=== PATIENT | female | born 1965 | race Caucasian/White ===

== ENCOUNTER 2017-05-12 13:12 | Emergency (ER) | payer MEDICARE, MEDICAID ==
[2017-05-12 13:57] VITALS: BP 116/79
--- NOTE | 2017-05-12 14:47 | UC ---
Respiratory Complaint HPI - HPI Summary HPI Summary: Pt presents with sinus congestion/pain/pressure for 10 days. Non productive cough for 3 days. Denies fever, chills, SOB, chest pain, ST, earache, N/V/D/C. Still smoking. Has not tried anything OTC. Has not been using her inhalers previously prescribed at home. - History of Current Complaint Chief Complaint: UCRespiratory Stated Complaint: COUGH SINUS ISSUE Time Seen by Provider: 05/12/17 14:46 Hx Obtained From: Patient ?: No Onset/Duration: Gradual Onset Timing: Constant Severity Initially: Mild Severity Currently: Mild Character: Cough: Nonproductive Aggravating Factors: Allergens, Exertion Alleviating Factors: Nothing Associated Signs And Symptoms: Positive: URI, Nasal Congestion, Sinus Discomfort. Negative: Dyspnea, Fever, Chills, Pleuritic Chest Pain, Wheezing, Edema - Allergies/Home Medications Allergies/Adverse Reactions: Allergies Allergy/AdvReac Type Severity Reaction Status Date / Time Ibuprofen Allergy BARIATRIC Verified 05/12/17 13:57 SURGERY HX Sulfa Antibiotics Allergy Hives Verified 05/12/17 13:57 PMH/Surg Hx/FS Hx/Imm Hx Previously Healthy: Yes Respiratory History: COPD, Asthma, Bronchitis - Surgical History Surgical History: Yes Surgery Procedure, Year, and Place: BARIATRIC SLEEVE SURGERY 2016, FUSION TO LOW BACK. GALLBLADDER REMOVED, TUBAL, BLADDER SURGERY, ABLASION, - Family History Known Family History: Positive: Unknown - Social History Lives: Alone Alcohol Use: None Substance Use Type: None Smoking Status (MU): Heavy Every Day Tobacco Smoker Type: Cigarettes Household Exposure Type: Cigarettes Review of Systems Constitutional: Negative Skin: Negative Eyes: Negative ENT: Nasal Discharge, Sinus Congestion, Sinus Pain/Tenderness Respiratory: Cough Cardiovascular: Negative Gastrointestinal: Negative Neurological: Negative Psychological: Negative All Other Systems Reviewed And Are Negative: Yes Physical Exam Triage Information Reviewed: Yes Appearance: Well-Appearing, Well-Nourished Vital Signs: Initial Vital Signs Temp 98.1 F 05/12/17 13:52 Pulse 76 05/12/17 13:52 Resp 15 05/12/17 13:52 BP 116/79 05/12/17 13:52 Pulse Ox 100 05/12/17 13:52 Vital Signs Reviewed: Yes ENT: Positive: Hearing grossly normal, Pharynx normal, Nasal congestion, Nasal drainage, TMs normal, Sinus tenderness. Negative: Pharyngeal erythema, TM bulging, TM dull, TM red, Tonsillar swelling, Tonsillar exudate Neck: Positive: Supple, Nontender, No Lymphadenopathy Respiratory: Positive: Chest non-tender, No respiratory distress, No accessory muscle use, Wheezing - Mild throughout Cardiovascular: Positive: RRR, No Murmur, Pulses Normal Skin: Negative: rashes UC Diagnostic Evaluation - Laboratory O2 Sat by Pulse Oximetry: 100 Respiratory Course/Dx - Course Course Of Treatment: Suspect sinusitis with PND and/or secondary acute bronchitis. Pt has not been using her previously prescribed inhalers at home - I advised her to do so as rx'd. Given her length of symptoms, PE, and smoking status - rx Amoxicillin 500mg BID 10 days. - Differential Dx/Diagnosis Differential Diagnosis/HQI/PQRI: Asthma, Bronchitis, Influenza, Lower Resp Infection, Other - PNA Provider Diagnoses: Maxillary Sinusitis. Acute Bronchitis Discharge - Discharge Plan Condition: Stable Disposition: HOME Prescriptions: Amoxicillin PO (*) [Amoxicillin 500 MG CAP*] 500 mg PO Q12H #20 cap Patient Education Materials: Sinusitis (ED), Acute Bronchitis (ED) Referrals: No Primary Care Phys,NOPCP [Primary Care Provider] - Additional Instructions: 1) Amoxicillin 500mg twice a day for 10 days. 2) Use your previously prescribed inhalers that you have at home as directed. 3) Mucinex OTC If you develop a fever, SOB, chest pain, new or worsening symptoms - please call our office or go to ED
== END 2017-05-12 15:07 | disposition home or self-care (01) ==
LOC: UCEAST 13:12
DX: J01.00 Acute maxillary sinusitis, unspecified (principal); J20.9 Acute bronchitis, unspecified; Z88.6 Allergy status to analgesic agent; Z88.2 Allergy status to sulfonamides; J44.9 Chronic obstructive pulmonary disease, unspecified; J45.909 Unspecified asthma, uncomplicated; F17.210 Nicotine dependence, cigarettes, uncomplicated
CPT/HCPCS: 99202; G0463

== ENCOUNTER 2017-07-08 17:27 | Emergency (ER) | payer MEDICARE, MEDICAID ==
--- NOTE | 2017-07-08 20:33 | ED ---
Back Pain - HPI Summary HPI Summary: Patient presents to the ED with CC of low back pain. She has had previous back surgery and has fallen 3-4 times and thinks she may have caused more damage. Worsening pain radiates to the right hip and into the piriformis radiating down the right leg without numbness, tingling. She denies weakness, B/B dysfunction. She denies fevers, sweats or chills. She has had a steroid injection in the back last week and states the pain should be improving, but it has stayed the same. Pain has remained constant for 1 week. She denies head injury or LOC. - History of Current Complaint Chief Complaint: EDBackInjuryPain Stated Complaint: BACK PAIN Time Seen by Provider: 07/08/17 18:40 Hx Obtained From: Patient Onset/Duration: Sudden Onset Onset/Duration: Started Days Ago Timing: Constant Back Pain Location: Is Diffuse - throughout the cervical, thoracic and lumbar spine Pain Intensity: 10 Pain Scale Used: 0-10 Numeric Character: Aching Aggravating Symptom(s): Movement, Lifting, Bending Alleviating Symptom(s): Rest, Position - Risk Factors AAA Risk Factors: Negative TAD Risk Factors: Negative Cauda Equina Risk Factors: Negative Epidural Abscess Risk Factors: Negative - Allergies/Home Medications Allergies/Adverse Reactions: Allergies Allergy/AdvReac Type Severity Reaction Status Date / Time Ibuprofen Allergy BARIATRIC Verified 05/21/17 08:56 SURGERY HX Sulfa Antibiotics Allergy Hives Verified 05/21/17 08:56 PMH/Surg Hx/FS Hx/Imm Hx Previously Healthy: Yes Endocrine/Hematology History: Denies: Hx Diabetes Cardiovascular History: Denies: Hx Hypertension GI History: Reports: Other GI Disorders - Hx bariatric surgery History: Denies: Hx Renal Disease - Surgical History Surgery Procedure, Year, and Place: BARIATRIC SLEEVE SURGERY 2016, FUSION TO LOW BACK. GALLBLADDER REMOVED, TUBAL, BLADDER SURGERY, ABLASION, - Immunization History Date of Influenza Vaccine: Fall 2016 Hx Pertussis Vaccination: No Immunizations Up to Date: Unable to Obtain/Confirm Infectious Disease History: No Infectious Disease History: Denies: History Other Infectious Disease, Traveled Outside the [place] in Last 30 Days - Family History Known Family History: Positive: Unknown - Social History Occupation: Employed Full-time Lives: With Family Alcohol Use: None Hx Substance Use: No Substance Use Type: Reports: None Hx Tobacco Use: Yes Smoking Status (MU): Heavy Every Day Tobacco Smoker Type: Cigarettes Review of Systems Constitutional: Negative Negative: Fever, Chills, Fatigue Eyes: Negative Cardiovascular: Negative Gastrointestinal: Negative Genitourinary: Negative Positive: no symptoms reported, see HPI Positive: Arthralgia - mid to low back pain Skin: Negative Neurological: Negative All Other Systems Reviewed And Are Negative: Yes Physical Exam Triage Information Reviewed: Yes Vital Signs On Initial Exam: Initial Vitals Temp Pulse Resp BP Pulse Ox 97.8 F 74 18 138/74 100 07/08/17 17:31 07/08/17 17:31 07/08/17 17:31 07/08/17 17:31 07/08/17 17:31 Vital Signs Reviewed: Yes Appearance: Positive: Well-Appearing, Well-Nourished Skin: Positive: Skin Color Reflects Adequate Perfusion Head/Face: Positive: Normal Head/Face Inspection Eyes: Positive: EOMI, DAYNE, Conjunctiva Clear Neck: Positive: Supple, No Lymphadenopathy Respiratory/Lung Sounds: Positive: Clear to Auscultation, Breath Sounds Present Cardiovascular: Positive: RRR, Pulses are Symmetrical in both Upper and Lower Extremities Neurological: Positive: Sensory/Motor Intact, Alert, Oriented to Person Place, Time, Speech Normal Psychiatric: Positive: Normal Diagnostics - Vital Signs Vital Signs Temp Pulse Resp BP Pulse Ox 07/08/17 17:31 97.8 F 74 18 138/74 100 - Laboratory Lab Statement: Any lab studies that have been ordered have been reviewed, and results considered in the medical decision making process. Back Pain Course/Dx - Course Course Of Treatment: Patient presents to the ED with request for CT scan of the back d/t pain and worsening symptoms since falling 3-4 times in the last few months. Recently received a steroid injection without improvement. Offered bupivicaine to the back for short term relief, but patient declines. CT cervical, thoracic and lumbar obtained and all with no changes. Patient is tearful. She is given tramadol 50mg in the ED. I have encouraged tylenol for pain control d/t gastric bypass and unable to take ibuprofen. She is encouraged to follow up with her spine physician and she agrees. I believe she is having inflammation and exacerbation of sciatica. I have given low back excercises. She will use heat for comfort. - Diagnoses Differential Diagnosis/HQI/PQRI: Positive: Herniated Disc Provider Diagnoses: Sciatica Discharge - Discharge Plan Condition: Stable Disposition: HOME Patient Education Materials: Lower Back Exercises (ED) Referrals: Marvin Menjivar DO [Primary Care Provider] - Additional Instructions: Tylenol 650mg three times daily Continue with your therapy and your steroid injections as prescribed As discussed, nothing new is found on CT scans today This is likely a flare up of inflammation with sciatica with radiating pain to the lumbar spine and hip
--- NOTE | 2017-07-08 20:41 | RAD ---
INDICATION: Trauma, history of back surgery, back pain. COMPARISON: Comparison is made with a prior CT of the abdomen and pelvis from May 21, 2017. TECHNIQUE: Contiguous axial sections were obtained beginning above the L1 vertebra and continuing through the L5-S1 disc space. Images were reconstructed in the sagittal and coronal planes. FINDINGS: The vertebra are in normal alignment. No acute fracture is seen. The patient is status post anterior and posterior spinal fusion at the L5-S1 level. There is a metallic plate present anterior transfixed with screws and pedicle screws present posteriorly. There appears to be bone graft within the L5-S1 disc which is not appear to be fused to the adjacent vertebra. At the L2-L3 level there is a mild broad-based disc bulge and mild hypertrophic changes within the facet joints. No spinal canal or neural foraminal narrowing is seen. At the L3-L4 level there is a minimal broad-based disc bulge and mild hypertrophic changes within the facet joints. No spinal canal or neural foraminal narrowing is seen. At the L4-L5 level there is a mild broad-based disc bulge and hypertrophic changes within the facet joints. The spinal canal is partially obscured due to metallic artifact. There appears to be mild spinal canal narrowing. Neural foramen appear patent on both sides. At the L5-S1 level the spinal canal is obscured due to metallic artifact from the fusion. No gross spinal canal narrowing is appreciated. IMPRESSION: 1. NO EVIDENCE FOR ACUTE FRACTURE OR SUBLUXATION. 2. STATUS POST ANTERIOR AND POSTERIOR SPINAL FUSION AT THE L5-S1 LEVEL. THERE IS NO EVIDENCE FOR OSSEOUS FUSION. 3. MILD SPONDYLITIC CHANGES.
--- NOTE | 2017-07-08 20:43 | RAD ---
INDICATION: Mild cervical spondylosis. COMPARISON: There are no prior studies available for comparison. TECHNIQUE: Contiguous axial sections were obtained from the skull base through the T1 vertebra. Images were reconstructed in the sagittal and coronal planes. FINDINGS: There is straightening of the cervical spine with loss of the normal cervical lordosis. No prevertebral soft tissue swelling or fracture is seen. At the C5-C6 level there is mild posterior uncinate process spurring associated with a mild broad-based disc bulge. No significant spinal canal or neural foraminal narrowing is present. At the C6-C7 level there is a small central disc protrusion causing mild spinal canal narrowing. Neural foramen appear patent on both sides. IMPRESSION: 1. STRAIGHTENING OF THE CERVICAL SPINE, NO EVIDENCE FOR FRACTURE OR SUBLUXATION. 2. MILD CERVICAL SPONDYLOSIS.
--- NOTE | 2017-07-08 21:00 | RAD ---
INDICATION: Trauma, recent falls. COMPARISON: There are no prior studies available for comparison. TECHNIQUE: Contiguous axial sections were obtained beginning above the C7 vertebra and scanning through the T12 vertebra. Images were reconstructed in the sagittal and coronal planes. FINDINGS: The vertebra are in normal alignment. No fracture is seen. Disc spaces appear relatively maintained. No significant spinal canal or neural foraminal narrowing is seen. IMPRESSION: NO EVIDENCE FOR FRACTURE OR SUBLUXATION.
[2017-07-08] MEDS ORDERED: traMADol TAB* 50 MG PO ONE (21:01)
[2017-07-08 21:50] VITALS: BP 129/74
== END 2017-07-08 21:48 | disposition home or self-care (01) ==
LOC: ED 17:27
DX: M54.30 Sciatica, unspecified side (principal); M47.816 Spondylosis without myelopathy or radiculopathy, lumbar region; M47.812 Spondylosis without myelopathy or radiculopathy, cervical region; Z98.1 Arthrodesis status; Z91.81 History of falling; F17.210 Nicotine dependence, cigarettes, uncomplicated
CPT/HCPCS: 36415; 72125; 72128; 72131; 86703; 99282; A9270-GY